=== PATIENT | female | born 1995 | race Two or more races ===

== ENCOUNTER 2022-09-05 07:08 | Day surgery (SDC) | payer OTHER ==
[2022-09-05] MEDS ORDERED: IBU600 MG PO (14:37)
== END 2022-09-05 17:00 | disposition home or self-care (01) ==
LOC: CIR.AMB 07:08
PROVIDERS: ATTEND Obstetrics & Gynecology Gynecology
DX: N84.0 Polyp of corpus uteri (principal)

== ENCOUNTER 2025-01-02 23:09 | Emergency (ER) | payer OTHER ==
[~2025-01-02] VITALS: Ht 162.6 cm; Wt 59.0 kg
[~2025-01-02 23:09] MED LIST: IBU600 MG PO
[2025-01-02 23:19] VITALS: O2SAT 97
[2025-01-03] MEDS ORDERED: KETOROLAC TROMETHAMINE 60 MG VIAL IM STA (00:33)
[2025-01-03] MEDS ORDERED: cloNIDine HCL 0.2 MG TABLET PO STA (00:34)
[2025-01-03] MEDS ORDERED: CLONIDINE HCL 0.1 MG TABLET PO ONE (00:43)
[2025-01-03] MEDS ORDERED: KETOROLAC TROMETHAMINE 60 MG VIAL IM ONE (00:43)
[2025-01-03 01:00] LABS: HEMATOCRIT 41.1 % (36.0-45.00); HEMOGLOBIN 14.1 g/dL (12.0-15.00); MEAN CELL VOLUME 81.7 fL (80.00-100.00); MEAN CORPUSCULAR HEMOGLOBIN 28.1 pg (27.00-32.0); MEAN CORPUSCULAR HGB CONC 34.4 g/dl (32.0-36.0); PLATELET COUNT 166 K/uL (150-450); RED BLOOD COUNT 5.03 M/uL (4.00-6.00); RED CELL DISTRIBUTION WIDTH 13.9 % (11.5-14.5)
[2025-01-03 01:25] LABS: CALCIUM 9.9 mg/dL (8.5-10.1); CREATININE SERUM 0.7 mg/dL (0.55-1.02); GFR 98.25; POTASSIUM 4.11 mEq/L (3.5-5.1)
[2025-01-03 02:38] VITALS: BP 96/60
== END 2025-01-03 03:10 | disposition home or self-care (01) ==
LOC: ER 23:10
DX: I10 Essential (primary) hypertension (principal); Z20.822 Contact with and (suspected) exposure to COVID-19